=== PATIENT | male | born 1970 | race Caucasian/White ===

== ENCOUNTER → 2017-06-14 | Outpatient (CLI) | payer MEDICAID, OTHER ==
[~2017-06-14] MED LIST: AMLO5TAB2 PO; ASPI-496 PO; CALC625T23 PO; CYCL-259 PO; DIPH25CA61 PO; DIPH50CA26 PO; GABA300C10 PO; IBUP-1222 PO; MELO15TA24 PO; METO50TA82 PO; OMEP-110 PO; OXYC1TAB8 PO; PREG100C PO; TAMS0.4C2 PO; TRAZ50TA18 PO
[2017-06-14 10:01] LABS: BLOOD UREA NITROGEN 8 mg/dL (7-18)
[2017-06-14 10:12] LABS: HEMATOCRIT 43.7 % (39.2-51.8); HEMOGLOBIN 14.9 g/dL (13.7-18.0); WHITE BLOOD COUNT 7.6 x10^3/uL (3.4-10)
== END | disposition home or self-care (01) ==
LOC: STAR 08:57
PROVIDERS: ATTEND Orthopaedic Surgery Orthopaedic Surgery of the Spine
DX: Z01.818 Encounter for other preprocedural examination (principal); I10 Essential (primary) hypertension; M43.16 Spondylolisthesis, lumbar region; M54.16 Radiculopathy, lumbar region
CPT/HCPCS: 36415; 71020; 80048; 81003; 85025; 93005

== ENCOUNTER 2017-06-22 07:19 | Observation (INO) | payer MEDICAID, OTHER ==
[~2017-06-22] VITALS: Ht 180.3 cm; Wt 128.9 kg
[2017-06-22] MEDS ORDERED: LACTATED RINGERS 1,000 ML IV SCH (07:47)
[2017-06-22 07:48] VITALS: BP 161/98
[2017-06-22] MEDS ORDERED: LIDOCAINE 1%, 2ML SQ PRN (08:00)
[2017-06-22] MEDS ORDERED: BUPIVACAINE LIPOSOME/PF INFIL ONE (09:20)
[2017-06-22] MEDS ORDERED: TRANEXAMIC ACID 100 MG/ML, 10ML ONE (09:21)
[2017-06-22] MEDS ORDERED: LIDOCAINE/MPF 2%-EPI 1:200K, 20 ML ONE (09:22)
[2017-06-22] MEDS ORDERED: THROMBIN 5,000 UNIT VIAL TP ONE (09:22)
[2017-06-22] MEDS ORDERED: VANCOMYCIN 1,000 MG ONE (09:22)
[2017-06-22] MEDS ORDERED: DEXAMETHASONE 4 MG/ML, 1ML ONE (09:45)
[2017-06-22] MEDS ORDERED: PROPOFOL 10 MG/ML, 50ML ONE (09:45)
[2017-06-22] MEDS ORDERED: ONDANSETRON 2MG/ML, 2ML ONE (09:45)
[2017-06-22] MEDS ORDERED: ROCURONIUM 10 MG/ML ONE (09:45)
[2017-06-22] MEDS ORDERED: SUCCINYLCHOLINE 20 MG/ML, 10ML ONE (09:45)
[2017-06-22] MEDS ORDERED: CEFAZOLIN 1,000 MG ONE (09:45)
[2017-06-22] MEDS ORDERED: OXYcodone 5 MG/5 ML ORAL.SOL UDC PO PRN ×2 (10:30)
[2017-06-22] MEDS ORDERED: HYDROmorphone 1 MG/ML, 1ML IV PRN ×2 (10:30)
[2017-06-22] MEDS ORDERED: ONDANSETRON 2MG/ML, 2ML IVPush PRN ×3 (10:30→14:00)
[2017-06-22] MEDS ORDERED: FENTANYL PF 100 MCG/2ML IV PRN ×2 (10:30)
[2017-06-22] MEDS ORDERED: LABETALOL 5MG/ML, 20ML IV PRN ×2 (10:30)
[2017-06-22] MEDS ORDERED: METOCLOPRAMIDE 5 MG/ML, 2ML IV PRN ×2 (10:30)
[2017-06-22] MEDS ORDERED: ACETAMINOPHEN 325 MG TABLET PO PRN ×2 (10:30)
[2017-06-22] MEDS ORDERED: hydrALAzine 20 MG/ML, 1ML IV PRN ×2 (10:30)
[2017-06-22] MEDS ORDERED: OMEPRAZOLE 20 MG CAPSULE.DR PO PRN (14:00)
[2017-06-22] MEDS ORDERED: VANCOMYCIN PMX 1GM/200ML 200 ML IV ONE (14:00)
[2017-06-22] MEDS ORDERED: DIPHENHYDRAMINE 50 MG/ML, 1ML IVPush PRN (14:00)
[2017-06-22] MEDS ORDERED: OXYcodone 5 MG/5 ML ORAL.SOL UDC ONE (14:18)
[2017-06-22] MEDS: GABAPENTIN 300 MG CAPSULE PO SCH ×2 (16:00→22:03)
[2017-06-22] MEDS: CYCLOBENZAPRINE 10 MG TABLET PO SCH ×2 (16:00→22:03)
[2017-06-22] MEDS: morphine SULFATE 10 MG/ML, 1ML IVPush PRN ×2 (16:15→20:01)
[2017-06-22 19:30] VITALS: BP 151/72
[2017-06-22] MEDS ORDERED: TRAZODONE 50MG TABLET PO SCH (21:00)
[2017-06-22] MEDS: PREGABALIN 100 MG CAPSULE PO SCH (22:03)
[2017-06-22] MEDS: VANCOMYCIN 1,900 MG in SODIUM CHLORIDE 0.9% 250 ML IV SCH (22:03)
[2017-06-22] MEDS: METOPROLOL TARTRATE 50 MG TABLET PO SCH (22:03)
[2017-06-22] MEDS: OXYcodone/APAP 5/325MG TABLET PO PRN ×2 (22:04→22:29)
[2017-06-22 23:50] VITALS: BP 111/70
[2017-06-23] MEDS: morphine SULFATE 10 MG/ML, 1ML IVPush PRN ×3 (00:58→09:41)
[2017-06-23] MEDS: OXYcodone/APAP 5/325MG TABLET PO PRN ×4 (02:42→07:10)
[2017-06-23 04:27] VITALS: BP 113/65
[2017-06-23 07:15] VITALS: BP 124/73
[2017-06-23] MEDS ORDERED: AMLODIPINE 5 MG TABLET PO SCH ×3 (09:00→21:00)
[2017-06-23] MEDS ORDERED: TAMSULOSIN 0.4 MG CAP.ER.24H PO SCH (09:00)
[2017-06-23] MEDS ORDERED: OXYcodone/APAP 10/325MG TABLET PO PRN (09:30)
[2017-06-23] MEDS: METOPROLOL TARTRATE 50 MG TABLET PO SCH (09:39)
[2017-06-23] MEDS: PREGABALIN 100 MG CAPSULE PO SCH (09:39)
[2017-06-23] MEDS: CYCLOBENZAPRINE 10 MG TABLET PO SCH (09:39)
[2017-06-23] MEDS: GABAPENTIN 300 MG CAPSULE PO SCH (09:39)
[2017-06-23] MEDS: VANCOMYCIN 1,900 MG in SODIUM CHLORIDE 0.9% 250 ML IV SCH (09:40)
[2017-06-23 13:09] VITALS: BP 134/75
[2017-06-23 14:22] VITALS: BP 129/79
[2017-06-23] MEDS ORDERED: DIAZ2TAB PO (15:25)
[2017-06-23] MEDS ORDERED: OXYC5TAB3 PO (15:27)
[2017-06-24] MEDS ORDERED: METOPROLOL TARTRATE 50 MG TABLET PO SCH (09:00)
== END 2017-06-23 15:50 | disposition home or self-care (01) ==
LOC: INTOOBSV 07:19 → ORIP 07:19 → 4NOR 19:23 → DCLOUNGE 06-23 14:46
PROVIDERS: ADMIT Orthopaedic Surgery Orthopaedic Surgery of the Spine; ATTEND Orthopaedic Surgery Orthopaedic Surgery of the Spine
DX: M51.37 Other intervertebral disc degeneration, lumbosacral region (principal); M47.9 Spondylosis, unspecified; M43.17 Spondylolisthesis, lumbosacral region; M48.07 Spinal stenosis, lumbosacral region
CPT/HCPCS: 20931; 20938; 22612; 22633; 22840; 72100; 96365; 96366; 96375; 96376; C1713; C1762; C1767; C9290; G0378; J0330; J0690; J1100; J1170; J2250; J2270; J2405; J2704; J3010; J3370; J3490; J7050; J7120